=== PATIENT | male | born 1950 | race Hispanic/Latino ===

== ENCOUNTER → 2019-11-20 | Day surgery (SDC) | payer MEDICARE, OTHER ==
[2019-11-17 14:24] LABS: BASOPHILS # (AUTO) 0.1 (0.0-0.1); BASOPHILS % 1.6 % (0.0-1.0); EOSINOPHILS # (AUTO) 0.1 (0.0-0.4); EOSINOPHILS % 2.5 % (0.0-6.0); HEMATOCRIT 40.2 % (38.2-49.6); HEMOGLOBIN 13.1 g/dL (14.0-18.0); LYMPHOCYTES # (AUTO) 1.2 (1.0-3.2); LYMPHOCYTES % 32.3 % (18.0-39.1); MEAN CORPUSCULAR HEMOGLOBIN 31.8 pg (28-32); MEAN CORPUSCULAR HGB CONC 32.6 g/dL (31-35); MEAN CORPUSCULAR VOLUME 97.6 fL (81-99); MONOCYTES # (AUTO) 0.5 (0.2-0.8); MONOCYTES % 12.3 % (4.4-11.3); NEUTROPHILS # (AUTO) 1.9 (2.1-6.9); PLATELET COUNT 216 x10e3/uL (140-360); RED BLOOD COUNT 4.12 x10e6/uL (4.3-5.7); RED CELL DISTRIBUTION WIDTH 12.9 % (11.7-14.4)
[2019-11-17 14:38] LABS: ANION GAP 13.5 mmol/L (8-16); BLOOD UREA NITROGEN 17 mg/dL (7-26); BUN/CREATININE RATIO 17 (6-25); CALCIUM 8.9 mg/dL (8.4-10.2); CARBON DIOXIDE 25 mmol/L (22-29); CHLORIDE 106 mmol/L (98-107); CREATININE, SERUM 1.01 mg/dL (0.72-1.25); EST GLOMERULAR FILTRATION RATE > 60 ML/MIN (60-); GLUCOSE 93 mg/dL (74-118); POTASSIUM 4.5 mmol/L (3.5-5.1); SODIUM 140 mmol/L (136-145)
--- NOTE | 2019-11-17 14:54 | Diagnostic Imaging Report ---
Chest, 2 views, 11/17/2019. History: Preop, Urologic procedure. Comparison: None available. Findings: The cardiomediastinal silhouette and pulmonary vasculature are within normal limits. There is no focal consolidation or pleural effusion. Linear opacities are present in the left lung base suggestive of scarring. There are no acute osseous or soft tissue abnormalities. Impression: No acute cardiopulmonary abnormality. Signed by: Corey Bowens on 11/17/2019 2:51 PM
[~2019-11-20] MED LIST: ACETAMINOPHEN-1 EAC4 PO; B&O 60MG R/S 60 MG SUPP PR ONE; CEFTRIAXONE SOD 1 GM/NS 50 ML 50 ML IV ONE; CEPHALEXIN500 MG PO; FENTANYL CITRATE/PF 100MCG/2 ML INJ ONE; IOPAMIDOL 300MG/ML 50ML INFUS..BTL IV ONE; MEPERIDINE HCL INJ 25 MG/ML VIAL ONE; OMEPRAZOLE40 MG PO
[2019-11-20 11:46] VITALS: BP 154/90
--- NOTE | 2019-11-21 02:02 | Operative Report ---
DATE OF PROCEDURE: 11/20/2019 SURGEON: Claudio Byrd MD PREOPERATIVE DIAGNOSIS: Bilateral ureteral stones. POSTOPERATIVE DIAGNOSIS: Left distal ureteral stone and a right distal ureteral scar. OPERATIVE PROCEDURE: 1. Cystoscopy. 2. Bilateral retrograde pyelogram. 3. Bilateral ureteroscopy. 4. Removal of left ureteral stones. 5. Placement of bilateral ureteral stents. ANESTHESIA: General anesthesia. ESTIMATED BLOOD LOSS: Minimal. INDICATIONS: Mr. Gaston Land is a 69-year-old gentleman who previously undergone radical prostatectomy for prostate cancer, presented recently with abdominal pain and was found to have a 1 to 2 mm stone on the right side and a 3 to 4 mm stone on the left side, both in the distal ureter. He now presents for definitive surgical management of both of these after failure of trial of passage. PROCEDURE IN DETAIL: The patient was brought into the operating room and placed in supine position. After administration of general anesthesia, was placed in dorsal lithotomy position and prepped and draped in the usual sterile fashion. Cystourethroscopy was performed using 21-[place] cystoscope. The anterior and posterior urethra were noted to be normal. The prostate was surgically absent. The patient had a good bladder neck reconstruction with presumed incontinence. Bladder was entered without difficulty. Upon entrance into the bladder, the ureteral orifices were in normal anatomical position and produced clear efflux. The left and subsequently the right ureters were cannulated with a 5-[place] open-ended catheter and retrograde pyelogram was performed. The left side revealed a filling defect suspicious for the stone approximately 3 cm proximal to the ureterovesical junction. The right side revealed moderate narrowing and a questionable filling defect about 1 to 2 cm above the ureterovesical anastomosis. The left side was attached first. A wire was placed up into the left renal pelvis and the left ureteral orifice was dilated with a UroMax balloon. Rigid ureteroscopy was then performed. The filling defect was found to be calculi and this was grabbed with a basket and removed in its entirety. It was ultimately sent to Pathology for microscopic analysis. Repeat ureteroscopy up to the level of the ureteropelvic junction revealed no other calculi. The ureteroscope was then carefully removed and a 6-[place] 28 cm stent was placed such that one coil was in the renal pelvis and the subsequent coil was in the bladder. The string was allowed to exit the urethral meatus. The wire was then placed up the right ureteral orifice and up into the right renal pelvis. Again, the ureterovesical junction was dilated with a UroMax balloon. Rigid ureteroscopy was then performed on this side. The distal ureter was noted to be moderately strictured and a small perforation posteriorly was occurred with passage of the scope. The scope was then brought out and was allowed to pass freely up to the region of the mid ureter. No calculi were seen in this location. The scope was therefore removed carefully so as to perform no other trauma and a 6-[place] 28 cm stent was placed on this side as well. Both strings were allowed to exit the urethral meatus and both were tied together. The bladder was drained in its entirety and the cystoscope and the sheath were removed. The patient was returned to the supine position and anesthesia was reversed. He was transferred to a bed and taken to the postanesthesia care unit in good condition. Of note, the needle and instrument count were correct at the conclusion of the case. MD OLIVIA Lee/DAMIEN /[id number]
== END | disposition home or self-care (01) ==
LOC: OR 08:00
PROVIDERS: ATTEND Urology
DX: N20.1 Calculus of ureter (principal); Z88.1 Allergy status to other antibiotic agents; Z88.2 Allergy status to sulfonamides; Z84.89 Family history of other specified conditions; N39.3 Stress incontinence (female) (male); C61 Malignant neoplasm of prostate; Z01.810 Encounter for preprocedural cardiovascular examination; Z01.812 Encounter for preprocedural laboratory examination; Z01.818 Encounter for other preprocedural examination; Z11.59 Encounter for screening for other viral diseases
CPT/HCPCS: 36415; 52332; 52352; 71046; 74420; 80048; 85025; 88300; 93005; C1758; C1769; C2617; J0696; J2175; J3010; Q9967; U0002